=== PATIENT | female | born 1950 | race Caucasian/White ===

== ENCOUNTER 2022-12-06 10:40 | Inpatient (IN) | payer MEDICARE, OTHER ==
[~2022-12-06] VITALS: Ht 154.9 cm; Wt 65.8 kg
[2022-12-06 10:45] VITALS: BP 154/93; PULSE 82; RESP 18; TEMP 98.7; O2SAT 98
[2022-12-06] MEDS ORDERED: ACETAMINOPHEN 325 MG TABLET PO PRN (11:45)
[2022-12-06] MEDS ORDERED: DEXTROSE 50%-WATER 25 GM/50 ML SYRINGE IVP PRN (17:15)
[2022-12-06 17:41] LABS: GLUCOMETER DEV NAME(LOC) 2WR.1D
[2022-12-06] MEDS: INSULIN LISPRO 100 UNITS/ML SQ PRN ×2 (18:37→21:42)
[2022-12-06 19:46] LABS: GLUCOMETER DEV NAME(LOC) 2WR.2B
[2022-12-06 21:00] VITALS: O2SAT 98
[2022-12-06 21:31] LABS: GLUCOMETER DEV NAME(LOC) 2WR.2B
[2022-12-06] MEDS: ATORVASTATIN CALCIUM 40 MG TABLET PO SCH (21:38)
[2022-12-06] MEDS: SENNOSIDES 8.6 MG TABLET PO SCH (21:38)
[2022-12-06] MEDS: DOCUSATE SODIUM 100 MG CAPSULE PO SCH (21:39)
[2022-12-06] MEDS: MELATONIN 3 MG TABLET PO PRN (21:39)
[2022-12-06] MEDS: INSULIN GLARGINE,HUM.REC.ANLOG 100 UNITS/ML SQ SCH (21:41)
[2022-12-06] MEDS: ETHYL ALCOHOL 62% ANTISEPTIC NASAL SANITIZER 0.6 ML AMPUL NASAL SCH (21:53)
[2022-12-06 22:12] VITALS: BP 124/74; PULSE 85; RESP 18; TEMP 98.5; O2SAT 98
[2022-12-07 07:00] LABS: GLUCOMETER DEV NAME(LOC) 2WR.2B
[2022-12-07 07:47] LABS: BASOPHILS % (AUTO) 0.6 % (0.0-2.0); EOSINOPHILS % (AUTO) 2.5 % (1.0-6.0); HEMATOCRIT 36.7 % (36-46); HEMOGLOBIN 12.3 g/dL (12.0-16.0); LYMPHOCYTES # (AUTO) 2.4 K/uL (1.0-4.8); LYMPHOCYTES % (AUTO) 31.8 % (22.0-44.0); MEAN CORPUSCULAR HEMOGLOBIN 28.7 pg (26.0-34.0); MEAN CORPUSCULAR HGB CONC 33.6 G/dL (31.0-37.0); MEAN CORPUSCULAR VOLUME 86 fL (80-100); MONOCYTES # (AUTO) 0.7 K/uL (0.1-1.0); MONOCYTES % (AUTO) 9.1 % (2.0-9.0); NEUTROPHILS # (AUTO) 4.3 K/uL (1.8-7.7); PLATELET COUNT (AUTO) 277 K/uL (150-450); RED BLOOD CELL COUNT(AUTO) 4.29 MIL/uL (4.00-5.20); RED CELL DISTRIBUTION WIDTH 13.5 % (11.5-14.5)
[2022-12-07 08:03] VITALS: BP 130/80; PULSE 79; RESP 18; TEMP 97.9; O2SAT 98
[2022-12-07 08:05] LABS: ALBUMIN 2.8 g/dL (3.4-5.0); BILIRUBIN,TOTAL 0.5 mg/dL (0.1-1.0); CALCIUM, TOTAL 8.9 mg/dL (8.8-10.5); CREATININE 1.09 mg/dL (0.60-1.30); POTASSIUM 4.3 mmol/L (3.5-5.1); TOTAL PROTEIN, SERUM 6.3 g/dL (6.4-8.2)
[2022-12-07] MEDS: CLOPIDOGREL BISULFATE 75 MG TABLET PO SCH (08:29)
[2022-12-07] MEDS: LISINOPRIL 20 MG TABLET PO SCH (08:29)
[2022-12-07] MEDS: ETHYL ALCOHOL 62% ANTISEPTIC NASAL SANITIZER 0.6 ML AMPUL NASAL SCH ×2 (08:29→21:47)
[2022-12-07] MEDS: ASPIRIN 81 MG CHEWABLE TABLET PO SCH (08:29)
[2022-12-07] MEDS: DOCUSATE SODIUM 100 MG CAPSULE PO SCH ×2 (08:29→21:47)
[2022-12-07] MEDS: ENOXAPARIN SODIUM 40 MG/0.4 ML PF SYRINGE SQ SCH (08:30)
[2022-12-07 14:21] LABS: GLUCOMETER DEV NAME(LOC) 2WR.1D
[2022-12-07 17:51] LABS: GLUCOMETER DEV NAME(LOC) 2WR.2B
[2022-12-07 21:00] VITALS: BP 105/70; PULSE 83; RESP 18; TEMP 98.2; O2SAT 95
[2022-12-07] MEDS: ATORVASTATIN CALCIUM 40 MG TABLET PO SCH (21:47)
[2022-12-07] MEDS: MELATONIN 3 MG TABLET PO PRN (21:48)
[2022-12-07] MEDS: SENNOSIDES 8.6 MG TABLET PO SCH (21:48)
[2022-12-07] MEDS: INSULIN GLARGINE,HUM.REC.ANLOG 100 UNITS/ML SQ SCH (22:00)
[2022-12-07] MEDS: INSULIN LISPRO 100 UNITS/ML SQ PRN (22:05)
[2022-12-07 22:40] LABS: GLUCOMETER DEV NAME(LOC) 2WR.2B
[2022-12-08 06:56] LABS: GLUCOMETER DEV NAME(LOC) 2WR.2B
[2022-12-08 09:00] VITALS: BP 98/51; PULSE 68; RESP 18; TEMP 98.2; O2SAT 99
[2022-12-08] MEDS: ASPIRIN 81 MG CHEWABLE TABLET PO SCH (09:50)
[2022-12-08] MEDS: ETHYL ALCOHOL 62% ANTISEPTIC NASAL SANITIZER 0.6 ML AMPUL NASAL SCH ×2 (09:55→21:16)
[2022-12-08] MEDS: DOCUSATE SODIUM 100 MG CAPSULE PO SCH ×2 (09:56→21:17)
[2022-12-08] MEDS: LISINOPRIL 20 MG TABLET PO SCH (09:56)
[2022-12-08] MEDS: ENOXAPARIN SODIUM 40 MG/0.4 ML PF SYRINGE SQ SCH (09:57)
[2022-12-08] MEDS: CLOPIDOGREL BISULFATE 75 MG TABLET PO SCH (09:57)
[2022-12-08] MEDS: INSULIN LISPRO 100 UNITS/ML SQ PRN ×2 (12:17→17:27)
[2022-12-08 12:31] LABS: GLUCOMETER DEV NAME(LOC) 2WR.2B
[2022-12-08 18:21] VITALS: O2SAT 96
[2022-12-08 18:41] LABS: GLUCOMETER DEV NAME(LOC) 2WR.2B
[2022-12-08 20:20] VITALS: BP 142/96; PULSE 82; RESP 18; TEMP 98.2; O2SAT 100
[2022-12-08 20:30] VITALS: O2SAT 100
[2022-12-08] MEDS: SENNOSIDES 8.6 MG TABLET PO SCH (21:17)
[2022-12-08] MEDS: ATORVASTATIN CALCIUM 40 MG TABLET PO SCH (21:17)
[2022-12-08] MEDS: MELATONIN 3 MG TABLET PO PRN (21:17)
[2022-12-08] MEDS: INSULIN GLARGINE,HUM.REC.ANLOG 100 UNITS/ML SQ SCH (21:20)
[2022-12-08 21:26] LABS: GLUCOMETER DEV NAME(LOC) 2WR.1D
[2022-12-09 06:56] LABS: GLUCOMETER DEV NAME(LOC) 2WR.2B
[2022-12-09 08:05] VITALS: BP 136/77; PULSE 82; RESP 18; TEMP 98.3; O2SAT 98
[2022-12-09] MEDS: ETHYL ALCOHOL 62% ANTISEPTIC NASAL SANITIZER 0.6 ML AMPUL NASAL SCH ×2 (08:23→21:00)
[2022-12-09] MEDS: DOCUSATE SODIUM 100 MG CAPSULE PO SCH ×2 (08:24→20:42)
[2022-12-09] MEDS: ASPIRIN 81 MG CHEWABLE TABLET PO SCH (08:24)
[2022-12-09] MEDS: CLOPIDOGREL BISULFATE 75 MG TABLET PO SCH (08:24)
[2022-12-09] MEDS: ENOXAPARIN SODIUM 40 MG/0.4 ML PF SYRINGE SQ SCH (08:24)
[2022-12-09 09:17] VITALS: O2SAT 98
[2022-12-09] MEDS: PANTOPRAZOLE SODIUM 40 MG DR TABLET PO SCH (09:22)
[2022-12-09] MEDS: INSULIN LISPRO 100 UNITS/ML SQ PRN ×3 (12:18→20:46)
[2022-12-09 12:41] LABS: GLUCOMETER DEV NAME(LOC) 2WR.2B
[2022-12-09 13:01] LABS: APPEARANCE,URINE CLEAR (CLEAR); BILIRUBIN,URINE NEGATIVE (NEGATIVE); GLUCOSE, URINE (UA) NEGATIVE (NEGATIVE); KETONES,URINE NEGATIVE (NEGATIVE); LEUKOCYTE ESTERASE ,URINE TRACE (NEGATIVE); NITRATE,URINE NEGATIVE (NEGATIVE); OCCULT BLOOD,URINE NEGATIVE (NEGATIVE); PROTEIN,URINE NEGATIVE (NEGATIVE); SPECIFIC GRAVITIY, URINE 1.011 (1.003-1.030); UROBILINOGEN,URINE <=1.0 mg/dL (<=1.0)
[2022-12-09 13:51] LABS: BACTERIA,URINE None Seen /HPF (None Seen); RBC,URINE None Seen /HPF (0-2); WBC,URINE 0-2 /HPF (0-5)
[2022-12-09 17:06] LABS: GLUCOMETER DEV NAME(LOC) 2WR.2B
[2022-12-09 20:42] VITALS: BP 123/81; PULSE 90; RESP 18; TEMP 98.8; O2SAT 99
[2022-12-09] MEDS: MELATONIN 3 MG TABLET PO PRN (20:42)
[2022-12-09] MEDS: SENNOSIDES 8.6 MG TABLET PO SCH (20:42)
[2022-12-09] MEDS: ATORVASTATIN CALCIUM 40 MG TABLET PO SCH (20:43)
[2022-12-09] MEDS: INSULIN GLARGINE,HUM.REC.ANLOG 100 UNITS/ML SQ SCH (20:45)
[2022-12-09 21:26] LABS: GLUCOMETER DEV NAME(LOC) 2WR.2B
[2022-12-10 07:01] LABS: GLUCOMETER DEV NAME(LOC) 2WR.1D
[2022-12-10 08:05] VITALS: BP 108/63; PULSE 82; RESP 18; TEMP 98.1; O2SAT 96
[2022-12-10] MEDS: PANTOPRAZOLE SODIUM 40 MG DR TABLET PO SCH (08:43)
[2022-12-10] MEDS: ASPIRIN 81 MG CHEWABLE TABLET PO SCH (08:43)
[2022-12-10] MEDS: CLOPIDOGREL BISULFATE 75 MG TABLET PO SCH (08:43)
[2022-12-10] MEDS: ETHYL ALCOHOL 62% ANTISEPTIC NASAL SANITIZER 0.6 ML AMPUL NASAL SCH ×2 (08:43→20:37)
[2022-12-10] MEDS: DOCUSATE SODIUM 100 MG CAPSULE PO SCH ×2 (08:43→20:37)
[2022-12-10] MEDS: ENOXAPARIN SODIUM 40 MG/0.4 ML PF SYRINGE SQ SCH (08:44)
[2022-12-10 12:16] LABS: GLUCOMETER DEV NAME(LOC) 2WR.2B
[2022-12-10] MEDS: INSULIN LISPRO 100 UNITS/ML SQ PRN ×2 (12:49→20:50)
[2022-12-10 17:36] LABS: GLUCOMETER DEV NAME(LOC) 2WR.2B
[2022-12-10] MEDS: SENNOSIDES 8.6 MG TABLET PO SCH (20:37)
[2022-12-10] MEDS: ATORVASTATIN CALCIUM 40 MG TABLET PO SCH (20:37)
[2022-12-10] MEDS: MELATONIN 3 MG TABLET PO PRN (20:38)
[2022-12-10 20:41] LABS: GLUCOMETER DEV NAME(LOC) 2WR.1D
[2022-12-10] MEDS: INSULIN GLARGINE,HUM.REC.ANLOG 100 UNITS/ML SQ SCH (20:47)
[2022-12-10 21:00] VITALS: BP 119/60; PULSE 81; RESP 18; TEMP 97.8; O2SAT 98
[2022-12-11 07:51] LABS: GLUCOMETER DEV NAME(LOC) 2WR.2B
[2022-12-11 08:00] VITALS: BP 141/75; PULSE 72; RESP 18; TEMP 97.7; O2SAT 99
[2022-12-11] MEDS: ENOXAPARIN SODIUM 40 MG/0.4 ML PF SYRINGE SQ SCH (08:02)
[2022-12-11] MEDS: PANTOPRAZOLE SODIUM 40 MG DR TABLET PO SCH (08:02)
[2022-12-11] MEDS: CLOPIDOGREL BISULFATE 75 MG TABLET PO SCH (08:02)
[2022-12-11] MEDS: DOCUSATE SODIUM 100 MG CAPSULE PO SCH ×2 (08:02→21:20)
[2022-12-11] MEDS: ETHYL ALCOHOL 62% ANTISEPTIC NASAL SANITIZER 0.6 ML AMPUL NASAL SCH ×2 (08:02→21:19)
[2022-12-11] MEDS: ASPIRIN 81 MG CHEWABLE TABLET PO SCH (08:02)
[2022-12-11 11:56] LABS: GLUCOMETER DEV NAME(LOC) 2WR.2B
[2022-12-11] MEDS: INSULIN LISPRO 100 UNITS/ML SQ PRN ×2 (17:14→21:33)
[2022-12-11 17:16] LABS: GLUCOMETER DEV NAME(LOC) 2WR.2B
[2022-12-11 21:00] VITALS: BP 147/80; PULSE 78; RESP 18; TEMP 98.7; O2SAT 100
[2022-12-11] MEDS: ATORVASTATIN CALCIUM 40 MG TABLET PO SCH (21:19)
[2022-12-11] MEDS: SENNOSIDES 8.6 MG TABLET PO SCH (21:20)
[2022-12-11] MEDS: MELATONIN 3 MG TABLET PO PRN (21:20)
[2022-12-11] MEDS: INSULIN GLARGINE,HUM.REC.ANLOG 100 UNITS/ML SQ SCH (21:31)
[2022-12-11 22:26] LABS: GLUCOMETER DEV NAME(LOC) 2WR.2B
[2022-12-12 07:41] LABS: GLUCOMETER DEV NAME(LOC) 2WR.1D
[2022-12-12] MEDS ORDERED: LISINOPRIL 20 MG TABLET PO SCH (09:00)
[2022-12-12 09:42] VITALS: BP 121/73; PULSE 81; RESP 18; TEMP 97.9; O2SAT 95
[2022-12-12] MEDS: PANTOPRAZOLE SODIUM 40 MG DR TABLET PO SCH (10:02)
[2022-12-12] MEDS: DOCUSATE SODIUM 100 MG CAPSULE PO SCH ×2 (10:02→20:24)
[2022-12-12] MEDS: ETHYL ALCOHOL 62% ANTISEPTIC NASAL SANITIZER 0.6 ML AMPUL NASAL SCH ×2 (10:02→20:24)
[2022-12-12] MEDS: CLOPIDOGREL BISULFATE 75 MG TABLET PO SCH (10:02)
[2022-12-12] MEDS: ENOXAPARIN SODIUM 40 MG/0.4 ML PF SYRINGE SQ SCH (10:02)
[2022-12-12] MEDS: ASPIRIN 81 MG CHEWABLE TABLET PO SCH (10:04)
[2022-12-12 11:19] VITALS: O2SAT 95
[2022-12-12 12:06] LABS: GLUCOMETER DEV NAME(LOC) 2WR.1D
[2022-12-12 20:01] LABS: GLUCOMETER DEV NAME(LOC) 2WR.1D
[2022-12-12 20:25] VITALS: BP 101/42; PULSE 92; RESP 18; TEMP 98.4; O2SAT 99
[2022-12-12] MEDS: SENNOSIDES 8.6 MG TABLET PO SCH (20:25)
[2022-12-12] MEDS: ATORVASTATIN CALCIUM 40 MG TABLET PO SCH (20:25)
[2022-12-12] MEDS: INSULIN LISPRO 100 UNITS/ML SQ PRN (21:53)
[2022-12-12] MEDS: INSULIN GLARGINE,HUM.REC.ANLOG 100 UNITS/ML SQ SCH (21:54)
[2022-12-12] MEDS: MELATONIN 3 MG TABLET PO PRN (21:54)
[2022-12-13 00:56] LABS: GLUCOMETER DEV NAME(LOC) 2WR.1D
[2022-12-13 07:41] LABS: GLUCOMETER DEV NAME(LOC) 2WR.1D
[2022-12-13 08:00] VITALS: BP 100/60; PULSE 80; RESP 18; TEMP 98.7; O2SAT 97
[2022-12-13] MEDS: ASPIRIN 81 MG CHEWABLE TABLET PO SCH (08:19)
[2022-12-13] MEDS: ETHYL ALCOHOL 62% ANTISEPTIC NASAL SANITIZER 0.6 ML AMPUL NASAL SCH ×2 (08:19→20:45)
[2022-12-13] MEDS: ENOXAPARIN SODIUM 40 MG/0.4 ML PF SYRINGE SQ SCH (08:20)
[2022-12-13] MEDS: PANTOPRAZOLE SODIUM 40 MG DR TABLET PO SCH (08:20)
[2022-12-13] MEDS: CLOPIDOGREL BISULFATE 75 MG TABLET PO SCH (08:20)
[2022-12-13] MEDS: DOCUSATE SODIUM 100 MG CAPSULE PO SCH ×2 (08:20→20:45)
[2022-12-13 14:56] LABS: GLUCOMETER DEV NAME(LOC) 2WR.2B
[2022-12-13 18:06] LABS: GLUCOMETER DEV NAME(LOC) 2WR.2B
[2022-12-13 20:00] VITALS: BP 101/58; PULSE 85; RESP 19; TEMP 98; O2SAT 98
[2022-12-13] MEDS: ATORVASTATIN CALCIUM 40 MG TABLET PO SCH (20:46)
[2022-12-13] MEDS: MELATONIN 3 MG TABLET PO PRN (20:46)
[2022-12-13] MEDS: SENNOSIDES 8.6 MG TABLET PO SCH (20:46)
[2022-12-13 20:50] LABS: GLUCOMETER DEV NAME(LOC) 2WR.2B
[2022-12-13] MEDS: INSULIN LISPRO 100 UNITS/ML SQ PRN (20:51)
[2022-12-13] MEDS: INSULIN GLARGINE,HUM.REC.ANLOG 100 UNITS/ML SQ SCH (20:52)
[2022-12-13 22:20] VITALS: O2SAT 98
[2022-12-14 06:46] LABS: GLUCOMETER DEV NAME(LOC) 2WR.2B
[2022-12-14 07:20] LABS: BASOPHILS % (AUTO) 1.9 % (0.0-2.0); EOSINOPHILS % (AUTO) 9.2 % (1.0-6.0); HEMATOCRIT 37.7 % (36-46); HEMOGLOBIN 12.6 g/dL (12.0-16.0); LYMPHOCYTES # (AUTO) 2.6 K/uL (1.0-4.8); MEAN CORPUSCULAR HEMOGLOBIN 28.7 pg (26.0-34.0); MEAN CORPUSCULAR HGB CONC 33.4 G/dL (31.0-37.0); MEAN CORPUSCULAR VOLUME 86 fL (80-100); MONOCYTES # (AUTO) 0.4 K/uL (0.1-1.0); MONOCYTES % (AUTO) 8.1 % (2.0-9.0); NEUTROPHILS # (AUTO) 1.8 K/uL (1.8-7.7); NEUTROPHILS % (AUTO) 32.8 % (40.0-70.0); PLATELET COUNT (AUTO) 297 K/uL (150-450); RED BLOOD CELL COUNT(AUTO) 4.38 MIL/uL (4.00-5.20); RED CELL DISTRIBUTION WIDTH 13.5 % (11.5-14.5)
[2022-12-14 07:29] LABS: CALCIUM, TOTAL 9.1 mg/dL (8.8-10.5); CREATININE 1.17 mg/dL (0.60-1.30); POTASSIUM 3.6 mmol/L (3.5-5.1)
[2022-12-14] MEDS: CLOPIDOGREL BISULFATE 75 MG TABLET PO SCH (08:09)
[2022-12-14] MEDS: DOCUSATE SODIUM 100 MG CAPSULE PO SCH ×2 (08:09→20:32)
[2022-12-14] MEDS: ASPIRIN 81 MG CHEWABLE TABLET PO SCH (08:09)
[2022-12-14] MEDS: ENOXAPARIN SODIUM 40 MG/0.4 ML PF SYRINGE SQ SCH (08:09)
[2022-12-14] MEDS: ETHYL ALCOHOL 62% ANTISEPTIC NASAL SANITIZER 0.6 ML AMPUL NASAL SCH ×2 (08:10→20:31)
[2022-12-14] MEDS: PANTOPRAZOLE SODIUM 40 MG DR TABLET PO SCH (08:10)
[2022-12-14 09:23] VITALS: BP 100/62; PULSE 84; RESP 19; TEMP 98.2; O2SAT 100
[2022-12-14] MEDS ORDERED: MELATONIN 3 MG TABLET PO PRN (09:30)
[2022-12-14 09:56] VITALS: O2SAT 100
[2022-12-14 09:58] VITALS: O2SAT 100
[2022-12-14 11:51] LABS: GLUCOMETER DEV NAME(LOC) 2WR.2B
[2022-12-14] MEDS: INSULIN LISPRO 100 UNITS/ML SQ PRN ×2 (17:04→20:38)
[2022-12-14 17:41] LABS: GLUCOMETER DEV NAME(LOC) 2WR.2B
[2022-12-14 20:32] VITALS: BP 113/55; PULSE 73; RESP 14; TEMP 98.4; O2SAT 95
[2022-12-14] MEDS: SENNOSIDES 8.6 MG TABLET PO SCH (20:32)
[2022-12-14] MEDS: ATORVASTATIN CALCIUM 40 MG TABLET PO SCH (20:32)
[2022-12-14] MEDS: INSULIN GLARGINE,HUM.REC.ANLOG 100 UNITS/ML SQ SCH (20:37)
[2022-12-14 21:11] LABS: GLUCOMETER DEV NAME(LOC) 2WR.2B
[2022-12-15 06:56] LABS: GLUCOMETER DEV NAME(LOC) 2WR.2B
[2022-12-15 08:25] VITALS: BP 122/52; PULSE 65; RESP 18; TEMP 98.4; O2SAT 95
[2022-12-15 08:26] VITALS: O2SAT 95
[2022-12-15] MEDS: ENOXAPARIN SODIUM 40 MG/0.4 ML PF SYRINGE SQ SCH (08:31)
[2022-12-15] MEDS: ASPIRIN 81 MG CHEWABLE TABLET PO SCH (08:31)
[2022-12-15] MEDS: ETHYL ALCOHOL 62% ANTISEPTIC NASAL SANITIZER 0.6 ML AMPUL NASAL SCH ×2 (08:31→20:58)
[2022-12-15] MEDS: CLOPIDOGREL BISULFATE 75 MG TABLET PO SCH (08:31)
[2022-12-15] MEDS: PANTOPRAZOLE SODIUM 40 MG DR TABLET PO SCH (08:31)
[2022-12-15] MEDS: DOCUSATE SODIUM 100 MG CAPSULE PO SCH ×2 (08:31→20:59)
[2022-12-15 12:07] LABS: GLUCOMETER DEV NAME(LOC) 2WR.2B
[2022-12-15] MEDS: INSULIN LISPRO 100 UNITS/ML SQ PRN ×2 (17:39→21:08)
[2022-12-15 17:57] LABS: GLUCOMETER DEV NAME(LOC) 2WR.2B
[2022-12-15 20:58] VITALS: BP 118/83; PULSE 69; RESP 18; TEMP 98.3; O2SAT 100
[2022-12-15] MEDS: SENNOSIDES 8.6 MG TABLET PO SCH (20:59)
[2022-12-15] MEDS: ATORVASTATIN CALCIUM 40 MG TABLET PO SCH (20:59)
[2022-12-15] MEDS: INSULIN GLARGINE,HUM.REC.ANLOG 100 UNITS/ML SQ SCH (21:07)
[2022-12-15] MEDS: MELATONIN 5 MG TABLET PO PRN (22:40)
[2022-12-16 07:01] LABS: GLUCOMETER DEV NAME(LOC) 2WR.1D
[2022-12-16 08:00] VITALS: BP 129/78; PULSE 71; RESP 19; TEMP 97.8; O2SAT 97
[2022-12-16] MEDS: ASPIRIN 81 MG CHEWABLE TABLET PO SCH (09:08)
[2022-12-16] MEDS: ETHYL ALCOHOL 62% ANTISEPTIC NASAL SANITIZER 0.6 ML AMPUL NASAL SCH ×2 (09:08→21:15)
[2022-12-16] MEDS: ENOXAPARIN SODIUM 40 MG/0.4 ML PF SYRINGE SQ SCH (09:09)
[2022-12-16] MEDS: DOCUSATE SODIUM 100 MG CAPSULE PO SCH ×2 (09:09→21:15)
[2022-12-16] MEDS: PANTOPRAZOLE SODIUM 40 MG DR TABLET PO SCH (09:09)
[2022-12-16] MEDS: CLOPIDOGREL BISULFATE 75 MG TABLET PO SCH (09:09)
[2022-12-16] MEDS: INSULIN LISPRO 100 UNITS/ML SQ PRN ×3 (09:11→21:13)
[2022-12-16 16:46] LABS: GLUCOMETER DEV NAME(LOC) 2WR.1D
[2022-12-16 18:46] LABS: GLUCOMETER DEV NAME(LOC) 2WR.2B
[2022-12-16 20:15] VITALS: BP 155/100; PULSE 84; RESP 18; TEMP 98.3; O2SAT 98
[2022-12-16] MEDS: INSULIN GLARGINE,HUM.REC.ANLOG 100 UNITS/ML SQ SCH (21:14)
[2022-12-16 21:15] VITALS: BP 140/88; PULSE 79
[2022-12-16] MEDS: MELATONIN 5 MG TABLET PO PRN (21:15)
[2022-12-16] MEDS: ATORVASTATIN CALCIUM 40 MG TABLET PO SCH (21:15)
[2022-12-16] MEDS: SENNOSIDES 8.6 MG TABLET PO SCH (21:15)
[2022-12-16 23:31] LABS: GLUCOMETER DEV NAME(LOC) 2WR.1D
[2022-12-17 08:06] LABS: GLUCOMETER DEV NAME(LOC) 2WR.2B
[2022-12-17 08:15] VITALS: BP 137/60; PULSE 74; RESP 20; TEMP 98.1; O2SAT 100
[2022-12-17] MEDS: CLOPIDOGREL BISULFATE 75 MG TABLET PO SCH (08:43)
[2022-12-17] MEDS: ETHYL ALCOHOL 62% ANTISEPTIC NASAL SANITIZER 0.6 ML AMPUL NASAL SCH ×2 (08:43→20:37)
[2022-12-17] MEDS: ASPIRIN 81 MG CHEWABLE TABLET PO SCH (08:43)
[2022-12-17] MEDS: PANTOPRAZOLE SODIUM 40 MG DR TABLET PO SCH (08:43)
[2022-12-17] MEDS: DOCUSATE SODIUM 100 MG CAPSULE PO SCH ×2 (08:43→20:38)
[2022-12-17] MEDS: ENOXAPARIN SODIUM 40 MG/0.4 ML PF SYRINGE SQ SCH (08:44)
[2022-12-17] MEDS: INSULIN LISPRO 100 UNITS/ML SQ PRN ×3 (12:33→20:47)
[2022-12-17 12:51] LABS: GLUCOMETER DEV NAME(LOC) 2WR.2B
[2022-12-17 18:23] VITALS: O2SAT 100
[2022-12-17 18:41] LABS: GLUCOMETER DEV NAME(LOC) 2WR.2B
[2022-12-17 20:37] VITALS: BP 134/78; PULSE 79; RESP 18; TEMP 97.9; O2SAT 100
[2022-12-17] MEDS: SENNOSIDES 8.6 MG TABLET PO SCH (20:37)
[2022-12-17] MEDS: ATORVASTATIN CALCIUM 40 MG TABLET PO SCH (20:38)
[2022-12-17] MEDS: MELATONIN 5 MG TABLET PO PRN (20:38)
[2022-12-17] MEDS: INSULIN GLARGINE,HUM.REC.ANLOG 100 UNITS/ML SQ SCH (20:46)
[2022-12-17 21:31] LABS: GLUCOMETER DEV NAME(LOC) 2WR.1D
[2022-12-18 07:10] LABS: GLUCOMETER DEV NAME(LOC) 2WR.2B
[2022-12-18] MEDS: ETHYL ALCOHOL 62% ANTISEPTIC NASAL SANITIZER 0.6 ML AMPUL NASAL SCH ×2 (07:58→20:21)
[2022-12-18] MEDS: ASPIRIN 81 MG CHEWABLE TABLET PO SCH (07:58)
[2022-12-18] MEDS: DOCUSATE SODIUM 100 MG CAPSULE PO SCH ×2 (07:58→20:06)
[2022-12-18] MEDS: ENOXAPARIN SODIUM 40 MG/0.4 ML PF SYRINGE SQ SCH (07:58)
[2022-12-18] MEDS: PANTOPRAZOLE SODIUM 40 MG DR TABLET PO SCH (07:58)
[2022-12-18] MEDS: CLOPIDOGREL BISULFATE 75 MG TABLET PO SCH (07:58)
[2022-12-18 08:05] VITALS: BP 134/70; PULSE 70; RESP 18; TEMP 98.3; O2SAT 98
[2022-12-18 11:41] LABS: GLUCOMETER DEV NAME(LOC) 2WR.2B
[2022-12-18] MEDS: INSULIN LISPRO 100 UNITS/ML SQ PRN ×3 (12:37→20:25)
[2022-12-18 13:21] VITALS: O2SAT 98
[2022-12-18 17:37] LABS: GLUCOMETER DEV NAME(LOC) 2WR.1D
[2022-12-18 20:06] VITALS: BP 110/77; PULSE 79; RESP 20; TEMP 98; O2SAT 98
[2022-12-18] MEDS: ATORVASTATIN CALCIUM 40 MG TABLET PO SCH (20:06)
[2022-12-18] MEDS: SENNOSIDES 8.6 MG TABLET PO SCH (20:06)
[2022-12-18] MEDS: MELATONIN 5 MG TABLET PO PRN (20:21)
[2022-12-18] MEDS: INSULIN GLARGINE,HUM.REC.ANLOG 100 UNITS/ML SQ SCH (20:24)
[2022-12-18 21:16] LABS: GLUCOMETER DEV NAME(LOC) 2WR.2B
[2022-12-19 06:54] LABS: BASOPHILS % (AUTO) 1.6 % (0.0-2.0); HEMATOCRIT 36.3 % (36-46); HEMOGLOBIN 12.2 g/dL (12.0-16.0); LYMPHOCYTES # (AUTO) 3.2 K/uL (1.0-4.8); LYMPHOCYTES % (AUTO) 50.1 % (22.0-44.0); MEAN CORPUSCULAR HEMOGLOBIN 28.9 pg (26.0-34.0); MEAN CORPUSCULAR HGB CONC 33.7 G/dL (31.0-37.0); MEAN CORPUSCULAR VOLUME 86 fL (80-100); MONOCYTES # (AUTO) 0.4 K/uL (0.1-1.0); MONOCYTES % (AUTO) 6.3 % (2.0-9.0); NEUTROPHILS # (AUTO) 2.2 K/uL (1.8-7.7); PLATELET COUNT (AUTO) 272 K/uL (150-450); RED BLOOD CELL COUNT(AUTO) 4.24 MIL/uL (4.00-5.20); RED CELL DISTRIBUTION WIDTH 13.6 % (11.5-14.5)
[2022-12-19 07:00] LABS: CALCIUM, TOTAL 9.2 mg/dL (8.8-10.5); CREATININE 1.15 mg/dL (0.60-1.30); POTASSIUM 4.1 mmol/L (3.5-5.1)
[2022-12-19 08:00] VITALS: BP 116/62; PULSE 78; RESP 19; TEMP 97.7; O2SAT 96
[2022-12-19] MEDS: ENOXAPARIN SODIUM 40 MG/0.4 ML PF SYRINGE SQ SCH (08:06)
[2022-12-19] MEDS: ASPIRIN 81 MG CHEWABLE TABLET PO SCH (08:06)
[2022-12-19] MEDS: PANTOPRAZOLE SODIUM 40 MG DR TABLET PO SCH (08:06)
[2022-12-19] MEDS: CLOPIDOGREL BISULFATE 75 MG TABLET PO SCH (08:06)
[2022-12-19] MEDS: DOCUSATE SODIUM 100 MG CAPSULE PO SCH ×2 (08:06→20:27)
[2022-12-19] MEDS: ETHYL ALCOHOL 62% ANTISEPTIC NASAL SANITIZER 0.6 ML AMPUL NASAL SCH ×2 (08:06→20:27)
[2022-12-19] MEDS: INSULIN LISPRO 100 UNITS/ML SQ PRN ×2 (12:37→20:37)
[2022-12-19 12:41] LABS: GLUCOMETER DEV NAME(LOC) 2WR.2B
[2022-12-19 14:01] LABS: GLUCOMETER DEV NAME(LOC) 2WR.1D
[2022-12-19] MEDS: ATORVASTATIN CALCIUM 40 MG TABLET PO SCH (20:28)
[2022-12-19] MEDS: MELATONIN 5 MG TABLET PO PRN (20:28)
[2022-12-19] MEDS: SENNOSIDES 8.6 MG TABLET PO SCH (20:28)
[2022-12-19] MEDS: INSULIN GLARGINE,HUM.REC.ANLOG 100 UNITS/ML SQ SCH (20:40)
[2022-12-19 20:56] LABS: GLUCOMETER DEV NAME(LOC) 2WR.2B
[2022-12-19 21:00] VITALS: BP 110/52; PULSE 81; RESP 19; TEMP 98.6; O2SAT 100
[2022-12-19 21:16] LABS: GLUCOMETER DEV NAME(LOC) 2WR.1D
[2022-12-20 07:46] LABS: GLUCOMETER DEV NAME(LOC) 2WR.2B
[2022-12-20 08:00] VITALS: BP 103/68; PULSE 67; RESP 18; TEMP 97.6; O2SAT 100
[2022-12-20] MEDS: ENOXAPARIN SODIUM 40 MG/0.4 ML PF SYRINGE SQ SCH (08:29)
[2022-12-20] MEDS: ETHYL ALCOHOL 62% ANTISEPTIC NASAL SANITIZER 0.6 ML AMPUL NASAL SCH ×2 (08:29→20:25)
[2022-12-20] MEDS: ASPIRIN 81 MG CHEWABLE TABLET PO SCH (08:29)
[2022-12-20] MEDS: CLOPIDOGREL BISULFATE 75 MG TABLET PO SCH (08:29)
[2022-12-20] MEDS: PANTOPRAZOLE SODIUM 40 MG DR TABLET PO SCH (08:29)
[2022-12-20] MEDS: DOCUSATE SODIUM 100 MG CAPSULE PO SCH ×2 (08:29→20:15)
[2022-12-20] MEDS: INSULIN LISPRO 100 UNITS/ML SQ PRN ×3 (12:14→20:26)
[2022-12-20 13:05] LABS: GLUCOMETER DEV NAME(LOC) 2WR.1D
[2022-12-20 17:36] LABS: GLUCOMETER DEV NAME(LOC) 2WR.1D
[2022-12-20 20:00] VITALS: BP 129/64; PULSE 74; RESP 19; TEMP 98; O2SAT 97
[2022-12-20] MEDS: SENNOSIDES 8.6 MG TABLET PO SCH (20:15)
[2022-12-20] MEDS: ATORVASTATIN CALCIUM 40 MG TABLET PO SCH (20:24)
[2022-12-20] MEDS: MELATONIN 5 MG TABLET PO PRN (20:24)
[2022-12-20] MEDS ORDERED: INSULIN GLARGINE,HUM.REC.ANLOG 100 UNITS/ML SQ SCH (21:00)
[2022-12-20 21:01] LABS: GLUCOMETER DEV NAME(LOC) 2WR.1D
[2022-12-21] MEDS ORDERED: ASPI-1450 PO (01:48)
[2022-12-21] MEDS ORDERED: PANT-31 PO ×2 (01:49→10:48)
[2022-12-21] MEDS ORDERED: CLOP75TA60 PO ×2 (01:49→10:48)
[2022-12-21] MEDS ORDERED: ATOR40TA28 PO (01:50)
[2022-12-21] MEDS ORDERED: DOCU-385 PO ×2 (01:50→10:48)
[2022-12-21] MEDS ORDERED: INSLAN SQ ×2 (01:51→10:48)
[2022-12-21] MEDS ORDERED: INSU100V SQ ×2 (01:57→10:48)
[2022-12-21] MEDS ORDERED: MELA5TAB40 PO (06:35)
[2022-12-21 09:00] VITALS: BP 130/65; PULSE 57; RESP 20; TEMP 97.9; O2SAT 99
[2022-12-21] MEDS: ASPIRIN 81 MG CHEWABLE TABLET PO SCH (09:18)
[2022-12-21] MEDS: CLOPIDOGREL BISULFATE 75 MG TABLET PO SCH (09:18)
[2022-12-21] MEDS: DOCUSATE SODIUM 100 MG CAPSULE PO SCH (09:18)
[2022-12-21] MEDS: ETHYL ALCOHOL 62% ANTISEPTIC NASAL SANITIZER 0.6 ML AMPUL NASAL SCH (09:18)
[2022-12-21] MEDS: ENOXAPARIN SODIUM 40 MG/0.4 ML PF SYRINGE SQ SCH (09:19)
[2022-12-21] MEDS: PANTOPRAZOLE SODIUM 40 MG DR TABLET PO SCH (09:19)
[2022-12-21] MEDS ORDERED: ATOR40TA71 PO (10:48)
[2022-12-21] MEDS ORDERED: ASPI81 PO (10:48)
[2022-12-21 19:16] LABS: GLUCOMETER DEV NAME(LOC) 2WR.2B
[2022-12-21 19:16] LABS: GLUCOMETER DEV NAME(LOC) 2WR.2B
[2022-12-21 19:16] LABS: GLUCOMETER DEV NAME(LOC) 2WR.2B
[2022-12-21 19:16] LABS: GLUCOMETER DEV NAME(LOC) 2WR.2B
== END 2022-12-21 12:45 | disposition home health service (06) | DRG 65 ==
LOC: 2WR 10:40
PROVIDERS: ADMIT Physical Medicine & Rehabilitation; ATTEND Physical Medicine & Rehabilitation
DX: I63.89 Other cerebral infarction (principal); G81.94 Hemiplegia, unspecified affecting left nondominant side; R41.4 Neurologic neglect syndrome; E78.5 Hyperlipidemia, unspecified; R35.1 Nocturia; E11.9 Type 2 diabetes mellitus without complications; H53.462 Homonymous bilateral field defects, left side; I10 Essential (primary) hypertension; R53.1 Weakness; R13.10 Dysphagia, unspecified; R41.89 Other symptoms and signs involving cognitive functions and awareness; Z82.49 Family history of ischemic heart disease and other diseases of the circulatory system; Z88.2 Allergy status to sulfonamides; Z83.3 Family history of diabetes mellitus; Z79.899 Other long term (current) drug therapy; Z86.73 Personal history of transient ischemic attack (TIA), and cerebral infarction without residual deficits; Z79.4 Long term (current) use of insulin; Z91.199 Patient's noncompliance with other medical treatment and regimen due to unspecified reason
CPT/HCPCS: 80048; 80053; 81001; 82962; 85025; 87081; 92507; 92523; 97112; 97116; 97162; 97167; 97530; 97535; 99366; J1650; J1815; Q9967